=== PATIENT | female | born 1995 | race African-American/Black ===

== ENCOUNTER 2017-07-24 08:32 | Emergency (ER) | payer SELFPAY ==
[~2017-07-24] VITALS: Ht 160 cm; Wt 63.0 kg
[2017-07-24 11:58] LABS: CLARITY URINE TURBID (CLEAR); COLOR URINE YELLOW (YELLOW); KETONES URINE NEGATIVE (NEGATIVE); LEUKOCYTE ESTERASE URINE NEGATIVE (NEGATIVE); NITRITE URINE NEGATIVE (NEGATIVE); OCCULT BLOOD URINE NEGATIVE (NEGATIVE); PH URINE 5.5 (4.5-8.0); PROTEIN URINE 1+ (NEGATIVE); UROBILINOGEN URINE 0.2 E.U./dL (0.2-1.0)
[2017-07-24 12:00] VITALS: BP 115/60
== END 2017-07-24 12:30 | disposition home or self-care (01) ==
LOC: ER 09:11
DX: T19.2XXA Foreign body in vulva and vagina, initial encounter (principal); F17.200 Nicotine dependence, unspecified, uncomplicated; F12.10 Cannabis abuse, uncomplicated; X58.XXXA Exposure to other specified factors, initial encounter; Y93.89 Activity, other specified; Y92.018 Other place in single-family (private) house as the place of occurrence of the external cause
CPT/HCPCS: 81001; 99283